=== PATIENT | female | born 1950 | race Caucasian/White ===

== ENCOUNTER 2017-03-02 00:23 | Observation (INO) ==
[2017-03-02] MEDS ORDERED: ALBUTEROL/IPRATROPIUM 3 ML NEB RESP TX STA (03:25)
--- NOTE | 2017-03-02 03:37 | EKG Report ---
Stationary ECG Study [facility] ER Test Date: 03/02/2017 3:36:02 AM Pat Name: PETER YE Department: Room: Gender: F Individualized Education Plan Aide: : 1950 Requested by: Chaitanya Rizzo Order Number: [id number] Reading MD: BREN SANFORD Intervals [place] Rate: 85 P: 85 CA: 124 QRS: 92 QRSD: 98 T: 76 QT: 374 QTc: 417 Interpretive Statements SINUS RHYTHM Electronically Signed On 03-04-17 17:27:00 CDT by BREN SANFORD [email or web address]
[2017-03-02 03:42] LABS: Basophils # 0.1 10*3/uL (0.0-0.2); Basophils % 0.8 % (0.0-0.8); Eosinophils # 0.1 10*3/uL (0.0-0.87); Eosinophils % 0.7 % (0.00-10.9); Hematocrit 42.6 VOL% (35.7-47.0); Hemoglobin 14.4 GM/DL (12.0-16.0); Immature Granulocytes % 0.3 %; Immature Granulocytes Absolute 0.03 #; Lymphocytes # 1.7 10*3/uL (1.4-4.0); Lymphocytes % 19.5 % (21.3-54.2); Mean Corpuscular HGB Conc 33.8 GM/DL (32-36); Mean Corpuscular Hemoglobin 30 PG (27-34); Mean Corpuscular Volume 90.1 FL (87-102); Mean Platelet Volume 9.7 FL (9.6-12.0); Monocytes # 0.6 10*3/uL (0.11-0.8); Neutrophils # 6.4 10*3/uL (1.4-7.4); Neutrophils % 71.7 % (38.7-73.9); Platelet Count 297 T/CUMM (130-400); Red Blood Count 4.73 MC/CUMM (3.8-5.5); Red Cell Distribution Width 13.2 % (9.3-17.3); White Blood Count 8.9 T/CUMM (4-12)
[2017-03-02 04:02] LABS: Albumin 3.4 G/DL (3.4-5.0); Bilirubin,Total 0.6 MG/DL (0.2-1.0); Calcium 9.3 MG/DL (8.5-10.1); Potassium 4.5 MMOL/L (3.5-5.1); Total Protein 6.7 G/DL (6.4-8.3)
[2017-03-02 04:14] LABS: VBG HCO3 32.3 MEQ/L (24-28); VBG Oxygen Saturation 81.4 %; VBG PCO2 58.3 MMHG (41-51); VBG PH 7.362
[2017-03-02] MEDS ORDERED: ACETAMINOPHEN 325 MG TABLET PO PRN (04:49)
[2017-03-02] MEDS ORDERED: ONDANSETRON 4 MG/2 ML VIAL IV PRN (04:49)
[2017-03-02] MEDS ORDERED: guaiFENesin/DM ER 600-30 MG TABLET PO PRN (04:49)
[2017-03-02] MEDS ORDERED: ALBUTEROL/IPRATROPIUM 3 ML NEB RESP TX PRN (05:25)
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
[2017-03-02] MEDS ORDERED: POTASSIUM GLUCONATE 500 MG TABLET PO SCH (09:00)
[2017-03-02] MEDS ORDERED: CETIRIZINE 5 MG TABLET PO SCH (09:00)
[2017-03-02] MEDS ORDERED: MONTELUKAST 10 MG TABLET PO SCH (09:00)
[2017-03-02] MEDS ORDERED: PANTOPRAZOLE 40 MG TABLET PO SCH (09:00)
[2017-03-02] MEDS ORDERED: ENOXAPARIN 40 MG/0.4 ML SYRINGE SUBCUT SCH (09:00)
[2017-03-02] MEDS ORDERED: CALCIUM CARBONATE PO SCH (09:00)
[2017-03-02] MEDS ORDERED: CHOLECALCIFEROL 1,000 UNIT TABLET PO SCH (09:00)
[2017-03-02] MEDS ORDERED: amLODIPine 10 MG TABLET PO SCH (09:00)
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
[2017-03-02 12:03] VITALS: BP 112/72
== END 2017-03-02 13:37 | disposition home or self-care (01) ==
LOC: N.EDINP 00:23 → N.ED 00:23 → SUATTDRO 04:53 → N.EDINP 05:33 → N.5E 06:09
PROVIDERS: ADMIT Family Medicine; ATTEND Family Medicine

== ENCOUNTER 2019-04-20 18:48 | Inpatient (IN) ==
[2019-04-20] MEDS ORDERED: fentaNYL 100 MCG/2 ML VIAL IV STA ×2 (19:06→21:23)
[2019-04-20] MEDS ORDERED: ONDANSETRON 4 MG/2 ML VIAL IV STA (19:06)
[2019-04-20] MEDS ORDERED: ALBUTEROL/IPRATROPIUM 3 ML NEB RESP TX STA (19:06)
[2019-04-20 19:37] LABS: Basophils # 0.1 10*3/uL (0.0-0.2); Basophils % 0.3 % (0.0-0.8); Hematocrit 33.5 VOL% (35.7-47.0); Hemoglobin 11.1 GM/DL (12.0-16.0); Immature Granulocytes % 0.7 %; Immature Granulocytes Absolute 0.14 #; Lymphocytes # 1.1 10*3/uL (1.4-4.0); Lymphocytes % 5.1 % (21.3-54.2); Mean Corpuscular HGB Conc 33.1 GM/DL (32-36); Mean Corpuscular Volume 89.6 FL (87-102); Mean Platelet Volume 8.8 FL (9.6-12.0); Monocytes % 4.8 % (1.7-12.7); Neutrophils % 89.1 % (38.7-73.9); Platelet Count 453 T/CUMM (130-400); Red Blood Count 3.74 MC/CUMM (3.8-5.5); Red Cell Distribution Width 13.2 % (9.3-17.3)
[2019-04-20 19:47] LABS: PT Patient Result 10.4 SECS (9.6-12.2)
[2019-04-20 19:50] LABS: Alanine Aminotransferase 30 U/L (13-56); Alkaline Phosphatase 85 U/L (45-117); Aspartate Amino Transferase 28 U/L (0-37); Bilirubin,Total < 0.39 MG/DL (0.2-1.0); Blood Urea Nitrogen 5 MG/DL (7-18); Calcium 8.1 MG/DL (8.5-10.1); Estimated Glom Filtration Rate 91 ML/MIN; Glucose 91 MG/DL (74-106); Osmolality,Calculated 247.5 MOS/KG (273-304); Total Protein 6.1 G/DL (6.4-8.3); Troponin I < 0.015 NG/ML (0.00-0.045)
[2019-04-20 20:03] LABS: Band Neutrophils 1 % (0-10); Lymphocytes 8 % (20-55); Segmented Neutrophils 89 % (50-85); Total Cells Counted 100
[2019-04-20 20:04] LABS: Platelet Estimate Adequate
[2019-04-20 20:15] LABS: Apearance,Urine CLEAR (Clear); Bilirubin,Urine Negative (Negative); Blood, Urine Small mg/dL (Negative); Glucose,Urine (UA) Negative (Negative); Ketones,Urine Negative (Negative); Nitrite,Urine Negative (Negative); Protein,Urine Negative; RBC,Urine 1 /HPF (0-4); Squamous Epithelial Cell,Urine Occasional /HPF (0-10); Urine Color Straw (Yellow); Urine Specific Gravity 1.002 (1.001-1.035); Urine Urobilinogen < 2.0 EU/DL (0.2-1.0); WBC,Urine 1 /HPF (0-6)
[2019-04-20] MEDS ORDERED: cefTRIAXone 1,000 MG in SODIUM CHLORIDE 0.9% 100 ML IV STA (20:15)
[2019-04-20] MEDS ORDERED: ALBUTEROL NEB SOLN 5 MG/ML 20 ML/BOTTLE CONT NEB STA (20:16)
[2019-04-20] MEDS ORDERED: AZITHROMYCIN INJ 500 MG in SODIUM CHLORIDE 0.9% 250 ML IV STA (20:16)
[2019-04-20] MEDS ORDERED: ORPHENADRINE 60 MG/2 ML VIAL IV STA (22:18)
[2019-04-20] MEDS ORDERED: ACETAMINOPHEN 325 MG TABLET PO PRN (23:21)
[2019-04-20] MEDS ORDERED: PROMETHAZINE 25 MG/1 ML VIAL IM PRN (23:21)
[2019-04-20] MEDS ORDERED: NICOTINE 21 MG/24 HR PATCH TRANSDERM PRN (23:21)
[2019-04-20] MEDS ORDERED: ALBUTEROL 2.5 MG/3 ML NEB RESP TX PRN (23:49)
[2019-04-21] MEDS ORDERED: LEVOFLOXACIN INJ 750 MG in PREMIX 1 EACH IV SCH
[2019-04-21] MEDS ORDERED: MAGNESIUM SULF RIDER 2 GM in PREMIX 1 EACH IV PRN (00:30)
[2019-04-21] MEDS ORDERED: MAGNESIUM SULF RIDER 4 GM in PREMIX 1 EACH IV PRN (00:30)
[2019-04-21] MEDS: SODIUM CHLORIDE 0.9% 1,000 ML IV SCH ×4 (00:42→23:45)
[2019-04-21] MEDS: HYDROmorphone 2 MG/1 ML VIAL IV PRN ×4 (00:50→19:25)
[2019-04-21] MEDS: ALBUTEROL/IPRATROPIUM 3 ML NEB RESP TX SCH ×4 (02:16→19:14)
[2019-04-21] MEDS: PIPERACILLIN/TAZOBACTAM 3,375 MG in SODIUM CHLORIDE 0.9% 100 ML IV SCH ×3 (02:49→18:00)
[2019-04-21 05:38] LABS: Basophils % 0.3 % (0.0-0.8); Eosinophils % 0.1 % (0.00-10.9); Hemoglobin 10.5 GM/DL (12.0-16.0); Immature Granulocytes % 0.5 %; Immature Granulocytes Absolute 0.07 #; Lymphocytes # 1.1 10*3/uL (1.4-4.0); Lymphocytes % 7.8 % (21.3-54.2); Mean Corpuscular HGB Conc 32.8 GM/DL (32-36); Mean Corpuscular Volume 89.4 FL (87-102); Mean Platelet Volume 8.9 FL (9.6-12.0); Monocytes % 9.6 % (1.7-12.7); Neutrophils % 81.7 % (38.7-73.9); Platelet Count 419 T/CUMM (130-400); Red Blood Count 3.58 MC/CUMM (3.8-5.5); Red Cell Distribution Width 13.2 % (9.3-17.3); White Blood Count 13.8 T/CUMM (4-12)
[2019-04-21 06:02] LABS: Calcium 8.3 MG/DL (8.5-10.1); Osmolality,Calculated 250.2 MOS/KG (273-304); Thyroid Stimulating Hormone 6.52 uIU/ml (0.358-3.74)
[2019-04-21] MEDS ORDERED: IPRATROPIUM 500 MCG/2.5 ML NEB RESP TX SCH (07:00)
[2019-04-21] MEDS: LOSARTAN 50 MG TABLET PO SCH (08:03)
[2019-04-21] MEDS ORDERED: POTASSIUM GLUCONATE 99 MG PO SCH (09:00)
[2019-04-21] MEDS ORDERED: ROSUVASTATIN 20 MG TABLET PO SCH (09:00)
[2019-04-21] MEDS ORDERED: Fluticasone-Umeclidin-Vilanter [Trelegy Ellipta] INH SCH (09:00)
[2019-04-21] MEDS ORDERED: predniSONE 20 MG TABLET PO SCH (09:00)
[2019-04-21] MEDS ORDERED: CETIRIZINE 10 MG TABLET PO SCH (09:00)
[2019-04-21] MEDS ORDERED: ORPHENADRINE 60 MG/2 ML VIAL IV PRN (10:00)
[2019-04-21] MEDS ORDERED: guaiFENesin/DM ER 600-30 MG TABLET PO PRN (10:48)
[2019-04-21] MEDS: MONTELUKAST 10 MG TABLET PO SCH (14:10)
[2019-04-21] MEDS: CETIRIZINE 10 MG TABLET PO SCH (14:10)
[2019-04-21] MEDS: PANTOPRAZOLE 40 MG TABLET PO SCH (14:10)
[2019-04-21] MEDS: CHOLECALCIFEROL 1,000 UNIT TABLET PO SCH (14:10)
[2019-04-21] MEDS: CALCIUM (CARBONATE) 500 MG TABLET PO SCH (14:10)
[2019-04-21] MEDS ORDERED: traZODone 50 MG TABLET PO PRN (14:57)
[2019-04-22] MEDS: ALBUTEROL/IPRATROPIUM 3 ML NEB RESP TX SCH ×4 (00:37→19:21)
[2019-04-22] MEDS: PIPERACILLIN/TAZOBACTAM 3,375 MG in SODIUM CHLORIDE 0.9% 100 ML IV SCH ×2 (02:55→09:21)
[2019-04-22 05:14] LABS: Basophils % 0.3 % (0.0-0.8); Eosinophils # 0.1 10*3/uL (0.0-0.87); Eosinophils % 0.4 % (0.00-10.9); Hematocrit 32.6 VOL% (35.7-47.0); Hemoglobin 10.7 GM/DL (12.0-16.0); Immature Granulocytes % 0.5 %; Immature Granulocytes Absolute 0.07 #; Lymphocytes # 0.8 10*3/uL (1.4-4.0); Lymphocytes % 5.5 % (21.3-54.2); Mean Corpuscular HGB Conc 32.8 GM/DL (32-36); Mean Corpuscular Volume 88.8 FL (87-102); Mean Platelet Volume 8.9 FL (9.6-12.0); Monocytes % 8.1 % (1.7-12.7); Neutrophils % 85.2 % (38.7-73.9); Platelet Count 415 T/CUMM (130-400); Red Blood Count 3.67 MC/CUMM (3.8-5.5); Red Cell Distribution Width 13.3 % (9.3-17.3); White Blood Count 13.5 T/CUMM (4-12)
[2019-04-22 05:43] LABS: Calcium 8.3 MG/DL (8.5-10.1); Osmolality,Calculated 248.4 MOS/KG (273-304)
[2019-04-22] MEDS: CETIRIZINE 10 MG TABLET PO SCH (08:17)
[2019-04-22] MEDS: MONTELUKAST 10 MG TABLET PO SCH (08:18)
[2019-04-22] MEDS: CALCIUM (CARBONATE) 500 MG TABLET PO SCH (08:18)
[2019-04-22] MEDS: DOCUSATE SODIUM 100 MG CAPSULE PO PRN (08:19)
[2019-04-22] MEDS: CHOLECALCIFEROL 1,000 UNIT TABLET PO SCH (08:19)
[2019-04-22] MEDS: SODIUM CHLORIDE 1 GM TABLET PO SCH ×2 (08:19→20:50)
[2019-04-22] MEDS: PANTOPRAZOLE 40 MG TABLET PO SCH (08:20)
[2019-04-22] MEDS: LOSARTAN 50 MG TABLET PO SCH (08:20)
[2019-04-22] MEDS: AZITHROMYCIN INJ 500 MG in SODIUM CHLORIDE 0.9% 250 ML IV SCH (13:28)
[2019-04-22] MEDS: SODIUM CHLORIDE 0.9% 1,000 ML IV SCH ×2 (17:32→17:33)
[2019-04-23] MEDS: ALBUTEROL/IPRATROPIUM 3 ML NEB RESP TX SCH ×4 (01:00→20:06)
[2019-04-23] MEDS: SODIUM CHLORIDE 0.9% 1,000 ML IV SCH ×4 (06:10→15:30)
[2019-04-23] MEDS: LOSARTAN 50 MG TABLET PO SCH (08:31)
[2019-04-23] MEDS: SODIUM CHLORIDE 1 GM TABLET PO SCH ×5 (08:31→20:58)
[2019-04-23] MEDS: PANTOPRAZOLE 40 MG TABLET PO SCH (10:02)
[2019-04-23] MEDS: CHOLECALCIFEROL 1,000 UNIT TABLET PO SCH (10:02)
[2019-04-23] MEDS: MONTELUKAST 10 MG TABLET PO SCH (10:02)
[2019-04-23] MEDS: CALCIUM (CARBONATE) 500 MG TABLET PO SCH (10:02)
[2019-04-23] MEDS: CETIRIZINE 10 MG TABLET PO SCH (10:02)
[2019-04-23] MEDS: AZITHROMYCIN INJ 500 MG in SODIUM CHLORIDE 0.9% 250 ML IV SCH (11:10)
[2019-04-24] MEDS: ALBUTEROL/IPRATROPIUM 3 ML NEB RESP TX SCH ×4 (00:52→20:47)
[2019-04-24] MEDS: SODIUM CHLORIDE 0.9% 1,000 ML IV SCH ×4 (02:50→14:20)
[2019-04-24] MEDS ORDERED: ALBUTEROL/IPRATROPIUM 3 ML NEB RESP TX ONE (06:00)
[2019-04-24] MEDS ORDERED: DIAZEPAM 5 MG TABLET PO ONE (06:00)
[2019-04-24] MEDS ORDERED: FAMOTIDINE 20 MG TABLET PO ONE (06:00)
[2019-04-24] MEDS ORDERED: PROPOFOL 200 MG/20 ML VIAL IV ONE (06:36)
[2019-04-24] MEDS ORDERED: BUPIVACAINE SPINAL 0.75% 2 ML AMP SPINAL ONE (06:37)
[2019-04-24] MEDS ORDERED: MIDAZOLAM 2 MG/2 ML VIAL ONE (06:37)
[2019-04-24] MEDS ORDERED: EPINEPHrine 1 MG/ML VIAL ONE (06:37)
[2019-04-24] MEDS ORDERED: DEXAMETHASONE 4 MG/1 ML VIAL ONE (06:37)
[2019-04-24] MEDS ORDERED: fentaNYL 100 MCG/2 ML VIAL ONE (06:37)
[2019-04-24] MEDS ORDERED: BUPIVACAINE 0.5% 50 ML VIAL ONE (06:37)
[2019-04-24] MEDS ORDERED: PHENYLEPHRINE 1 MG/10 ML SYRINGE IV ONE (06:37)
[2019-04-24 06:40] LABS: Basophils # 0.1 10*3/uL (0.0-0.2); Basophils % 0.6 % (0.0-0.8); Eosinophils # 0.3 10*3/uL (0.0-0.87); Eosinophils % 2.6 % (0.00-10.9); Hematocrit 33.7 VOL% (35.7-47.0); Hemoglobin 10.8 GM/DL (12.0-16.0); Immature Granulocytes % 0.5 %; Immature Granulocytes Absolute 0.06 #; Lymphocytes # 1.2 10*3/uL (1.4-4.0); Lymphocytes % 10.8 % (21.3-54.2); Mean Corpuscular Volume 90.8 FL (87-102); Mean Platelet Volume 9.5 FL (9.6-12.0); Monocytes % 9.5 % (1.7-12.7); Platelet Count 474 T/CUMM (130-400); Red Blood Count 3.71 MC/CUMM (3.8-5.5); Red Cell Distribution Width 13.5 % (9.3-17.3); White Blood Count 11.3 T/CUMM (4-12)
[2019-04-24 07:20] LABS: Calcium 8.3 MG/DL (8.5-10.1); Osmolality,Calculated 261.4 MOS/KG (273-304)
[2019-04-24] MEDS: CETIRIZINE 10 MG TABLET PO SCH (08:45)
[2019-04-24] MEDS: CHOLECALCIFEROL 1,000 UNIT TABLET PO SCH (08:45)
[2019-04-24] MEDS: DOCUSATE SODIUM 100 MG CAPSULE PO PRN (08:45)
[2019-04-24] MEDS: MONTELUKAST 10 MG TABLET PO SCH (08:45)
[2019-04-24] MEDS: CALCIUM (CARBONATE) 500 MG TABLET PO SCH (08:45)
[2019-04-24] MEDS: PANTOPRAZOLE 40 MG TABLET PO SCH (08:46)
[2019-04-24] MEDS: LOSARTAN 50 MG TABLET PO SCH (08:46)
[2019-04-24] MEDS: SODIUM CHLORIDE 1 GM TABLET PO SCH ×2 (08:46→14:17)
[2019-04-24] MEDS: methylPREDNISolone SOD SUC 40 MG/1 ML VIAL IV SCH ×2 (10:30→17:15)
[2019-04-24] MEDS: PIPERACILLIN/TAZOBACTAM 3,375 MG in SODIUM CHLORIDE 0.9% 100 ML IV SCH ×2 (10:32→17:14)
[2019-04-24] MEDS: ONDANSETRON 4 MG/2 ML VIAL IV PRN (11:28)
[2019-04-24] MEDS: AZITHROMYCIN INJ 500 MG in SODIUM CHLORIDE 0.9% 250 ML IV SCH (14:17)
[2019-04-25] MEDS: ALBUTEROL/IPRATROPIUM 3 ML NEB RESP TX SCH ×4 (00:31→20:52)
[2019-04-25] MEDS: PIPERACILLIN/TAZOBACTAM 3,375 MG in SODIUM CHLORIDE 0.9% 100 ML IV SCH ×3 (00:58→16:43)
[2019-04-25] MEDS: methylPREDNISolone SOD SUC 40 MG/1 ML VIAL IV SCH ×3 (01:41→16:44)
[2019-04-25 03:54] LABS: Basophils % 0.2 % (0.0-0.8); Hematocrit 37.2 VOL% (35.7-47.0); Hemoglobin 11.4 GM/DL (12.0-16.0); Immature Granulocytes % 0.8 %; Immature Granulocytes Absolute 0.05 #; Lymphocytes # 0.6 10*3/uL (1.4-4.0); Lymphocytes % 8.8 % (21.3-54.2); Mean Corpuscular HGB Conc 30.6 GM/DL (32-36); Mean Corpuscular Volume 93.9 FL (87-102); Mean Platelet Volume 9.1 FL (9.6-12.0); Monocytes % 3.4 % (1.7-12.7); Neutrophils % 86.8 % (38.7-73.9); Platelet Count 525 T/CUMM (130-400); Red Blood Count 3.96 MC/CUMM (3.8-5.5); Red Cell Distribution Width 13.6 % (9.3-17.3); White Blood Count 6.6 T/CUMM (4-12)
[2019-04-25 04:16] LABS: Calcium 9.4 MG/DL (8.5-10.1); Osmolality,Calculated 269.1 MOS/KG (273-304)
[2019-04-25] MEDS ORDERED: SODIUM POLYSTYRENE SULFATE 15 GM/60 ML BOTTLE PO ONE (07:03)
[2019-04-25] MEDS: MONTELUKAST 10 MG TABLET PO SCH (08:42)
[2019-04-25] MEDS: CHOLECALCIFEROL 1,000 UNIT TABLET PO SCH (08:43)
[2019-04-25] MEDS: LOSARTAN 50 MG TABLET PO SCH (08:43)
[2019-04-25] MEDS: CETIRIZINE 10 MG TABLET PO SCH (08:43)
[2019-04-25] MEDS: CALCIUM (CARBONATE) 500 MG TABLET PO SCH (08:43)
[2019-04-25] MEDS: PANTOPRAZOLE 40 MG TABLET PO SCH (08:44)
[2019-04-25] MEDS ORDERED: ALUMINUM/MAGNES/SIMETH MAX STR 30 ML UDCUP PO PRN (14:30)
[2019-04-25] MEDS: AZITHROMYCIN INJ 500 MG in SODIUM CHLORIDE 0.9% 250 ML IV SCH (14:42)
[2019-04-25] MEDS: SODIUM CHLORIDE 0.9% 1,000 ML IV SCH (18:41)
[2019-04-26] MEDS: PIPERACILLIN/TAZOBACTAM 3,375 MG in SODIUM CHLORIDE 0.9% 100 ML IV SCH ×2 (01:16→09:39)
[2019-04-26] MEDS: methylPREDNISolone SOD SUC 40 MG/1 ML VIAL IV SCH ×3 (01:16→17:24)
[2019-04-26] MEDS: ALBUTEROL/IPRATROPIUM 3 ML NEB RESP TX SCH ×4 (01:30→19:08)
[2019-04-26 07:04] LABS: Calcium 8.8 MG/DL (8.5-10.1); Osmolality,Calculated 273.7 MOS/KG (273-304)
[2019-04-26] MEDS: LOSARTAN 50 MG TABLET PO SCH (09:44)
[2019-04-26] MEDS: PANTOPRAZOLE 40 MG TABLET PO SCH (10:11)
[2019-04-26] MEDS: CALCIUM (CARBONATE) 500 MG TABLET PO SCH (10:11)
[2019-04-26] MEDS: CETIRIZINE 10 MG TABLET PO SCH (10:12)
[2019-04-26] MEDS: CHOLECALCIFEROL 1,000 UNIT TABLET PO SCH (10:12)
[2019-04-26] MEDS: MONTELUKAST 10 MG TABLET PO SCH (10:12)
[2019-04-26] MEDS: CEFDINIR 300 MG CAPSULE PO SCH (20:54)
[2019-04-27] MEDS: ALBUTEROL/IPRATROPIUM 3 ML NEB RESP TX SCH ×4 (00:05→19:30)
[2019-04-27] MEDS: methylPREDNISolone SOD SUC 40 MG/1 ML VIAL IV SCH ×3 (01:20→17:33)
[2019-04-27 04:58] LABS: Basophils % 0.1 % (0.0-0.8); Hematocrit 34.2 VOL% (35.7-47.0); Hemoglobin 10.8 GM/DL (12.0-16.0); Immature Granulocytes % 0.8 %; Immature Granulocytes Absolute 0.08 #; Lymphocytes # 0.7 10*3/uL (1.4-4.0); Lymphocytes % 7.4 % (21.3-54.2); Mean Corpuscular HGB Conc 31.6 GM/DL (32-36); Mean Corpuscular Volume 91.9 FL (87-102); Monocytes % 4.1 % (1.7-12.7); Neutrophils % 87.6 % (38.7-73.9); Platelet Count 564 T/CUMM (130-400); Red Blood Count 3.72 MC/CUMM (3.8-5.5); Red Cell Distribution Width 13.6 % (9.3-17.3); White Blood Count 9.8 T/CUMM (4-12)
[2019-04-27] MEDS: CETIRIZINE 10 MG TABLET PO SCH (09:45)
[2019-04-27] MEDS: PANTOPRAZOLE 40 MG TABLET PO SCH (09:45)
[2019-04-27] MEDS: LOSARTAN 50 MG TABLET PO SCH (09:45)
[2019-04-27] MEDS: CEFDINIR 300 MG CAPSULE PO SCH ×2 (09:45→20:51)
[2019-04-27] MEDS: CHOLECALCIFEROL 1,000 UNIT TABLET PO SCH (09:45)
[2019-04-27] MEDS: MONTELUKAST 10 MG TABLET PO SCH (09:45)
[2019-04-27] MEDS: CALCIUM (CARBONATE) 500 MG TABLET PO SCH (09:45)
[2019-04-28] MEDS: ALBUTEROL/IPRATROPIUM 3 ML NEB RESP TX SCH ×4 (01:27→20:20)
[2019-04-28] MEDS: methylPREDNISolone SOD SUC 40 MG/1 ML VIAL IV SCH ×3 (02:26→17:39)
[2019-04-28] MEDS: LOSARTAN 50 MG TABLET PO SCH (08:58)
[2019-04-28] MEDS: PANTOPRAZOLE 40 MG TABLET PO SCH (08:59)
[2019-04-28] MEDS: MONTELUKAST 10 MG TABLET PO SCH (08:59)
[2019-04-28] MEDS: CEFDINIR 300 MG CAPSULE PO SCH ×2 (08:59→21:22)
[2019-04-28] MEDS: CETIRIZINE 10 MG TABLET PO SCH (08:59)
[2019-04-28] MEDS: CALCIUM (CARBONATE) 500 MG TABLET PO SCH (08:59)
[2019-04-28] MEDS: CHOLECALCIFEROL 1,000 UNIT TABLET PO SCH (08:59)
[2019-04-28] MEDS: DOCUSATE SODIUM 100 MG CAPSULE PO PRN (13:02)
[2019-04-29] MEDS: ALBUTEROL/IPRATROPIUM 3 ML NEB RESP TX SCH ×4 (00:07→19:08)
[2019-04-29] MEDS: methylPREDNISolone SOD SUC 40 MG/1 ML VIAL IV SCH ×2 (01:22→09:07)
[2019-04-29 06:47] LABS: Basophils % 0.1 % (0.0-0.8); Hematocrit 36.5 VOL% (35.7-47.0); Hemoglobin 11.4 GM/DL (12.0-16.0); Immature Granulocytes % 1.4 %; Immature Granulocytes Absolute 0.19 #; Lymphocytes # 1.2 10*3/uL (1.4-4.0); Lymphocytes % 8.7 % (21.3-54.2); Mean Corpuscular HGB Conc 31.2 GM/DL (32-36); Mean Corpuscular Volume 92.6 FL (87-102); Monocytes % 4.2 % (1.7-12.7); Neutrophils % 85.6 % (38.7-73.9); Platelet Count 623 T/CUMM (130-400); Red Blood Count 3.94 MC/CUMM (3.8-5.5); Red Cell Distribution Width 13.9 % (9.3-17.3); White Blood Count 13.4 T/CUMM (4-12)
[2019-04-29 07:05] LABS: Calcium 8.9 MG/DL (8.5-10.1); Osmolality,Calculated 267.4 MOS/KG (273-304)
[2019-04-29] MEDS: LOSARTAN 50 MG TABLET PO SCH (09:11)
[2019-04-29] MEDS: MONTELUKAST 10 MG TABLET PO SCH (09:13)
[2019-04-29] MEDS: PANTOPRAZOLE 40 MG TABLET PO SCH (09:13)
[2019-04-29] MEDS: CHOLECALCIFEROL 1,000 UNIT TABLET PO SCH (09:13)
[2019-04-29] MEDS: CALCIUM (CARBONATE) 500 MG TABLET PO SCH (09:13)
[2019-04-29] MEDS: CETIRIZINE 10 MG TABLET PO SCH (09:14)
[2019-04-29] MEDS: SODIUM CHLORIDE 0.9% 500 ML IV SCH ×3 (09:25→14:24)
[2019-04-29] MEDS ORDERED: FAMOTIDINE 20 MG TABLET PO ONE (12:00)
[2019-04-29] MEDS ORDERED: PHENYLEPHRINE 1 MG/10 ML SYRINGE IV ONE ×2 (16:19→21:21)
[2019-04-29] MEDS ORDERED: MIDAZOLAM 2 MG/2 ML VIAL ONE (16:19)
[2019-04-29] MEDS ORDERED: KETAMINE 500 MG/10 ML VIAL ONE (16:19)
[2019-04-29] MEDS ORDERED: BUPIVACAINE SPINAL 0.75% 2 ML AMP SPINAL ONE (16:19)
[2019-04-29] MEDS: ONDANSETRON 4 MG/2 ML VIAL IV PRN (20:24)
[2019-04-29] MEDS: HYDROmorphone 2 MG/1 ML VIAL IV PRN (20:24)
[2019-04-29] MEDS ORDERED: PROPOFOL 200 MG/20 ML VIAL IV ONE (21:20)
[2019-04-30] MEDS: ALBUTEROL/IPRATROPIUM 3 ML NEB RESP TX SCH ×4 (00:23→19:15)
[2019-04-30 06:12] LABS: Basophils % 0.1 % (0.0-0.8); Eosinophils % 0.2 % (0.00-10.9); Immature Granulocytes % 0.7 %; Immature Granulocytes Absolute 0.12 #; Lymphocytes # 2.1 10*3/uL (1.4-4.0); Lymphocytes % 12.3 % (21.3-54.2); Mean Corpuscular HGB Conc 30.6 GM/DL (32-36); Mean Platelet Volume 9.2 FL (9.6-12.0); Monocytes % 11.8 % (1.7-12.7); Neutrophils % 74.9 % (38.7-73.9); Platelet Count 606 T/CUMM (130-400); Red Blood Count 3.83 MC/CUMM (3.8-5.5); Red Cell Distribution Width 14.2 % (9.3-17.3); White Blood Count 16.8 T/CUMM (4-12)
[2019-04-30 06:29] LABS: Calcium 8.7 MG/DL (8.5-10.1); Osmolality,Calculated 264.4 MOS/KG (273-304)
[2019-04-30] MEDS: LACTATED RINGERS 1,000 ML IV SCH (07:10)
[2019-04-30] MEDS ORDERED: PROPOFOL 200 MG/20 ML VIAL IV ONE (10:00)
[2019-04-30] MEDS ORDERED: LIDOCAINE 100 MG/5 ML SYRINGE ONE (10:00)
[2019-04-30] MEDS: CETIRIZINE 10 MG TABLET PO SCH (10:29)
[2019-04-30] MEDS: MONTELUKAST 10 MG TABLET PO SCH (10:29)
[2019-04-30] MEDS: DOCUSATE SODIUM 100 MG CAPSULE PO PRN (10:29)
[2019-04-30] MEDS: LOSARTAN 50 MG TABLET PO SCH (10:30)
[2019-04-30] MEDS: CHOLECALCIFEROL 1,000 UNIT TABLET PO SCH (10:30)
[2019-04-30] MEDS: predniSONE 20 MG TABLET PO SCH (10:30)
[2019-04-30] MEDS: CALCIUM (CARBONATE) 500 MG TABLET PO SCH (10:30)
[2019-04-30] MEDS: PANTOPRAZOLE 40 MG TABLET PO SCH (10:30)
[2019-05-01] MEDS: ALBUTEROL/IPRATROPIUM 3 ML NEB RESP TX SCH ×4 (01:06→20:07)
[2019-05-01 05:58] LABS: Basophils % 0.2 % (0.0-0.8); Eosinophils # 0.1 10*3/uL (0.0-0.87); Eosinophils % 0.9 % (0.00-10.9); Hematocrit 33.1 VOL% (35.7-47.0); Hemoglobin 10.4 GM/DL (12.0-16.0); Immature Granulocytes % 0.9 %; Immature Granulocytes Absolute 0.14 #; Lymphocytes # 2.7 10*3/uL (1.4-4.0); Mean Corpuscular HGB Conc 31.4 GM/DL (32-36); Mean Corpuscular Volume 92.5 FL (87-102); Mean Platelet Volume 8.8 FL (9.6-12.0); Monocytes % 12.8 % (1.7-12.7); Neutrophils % 68.2 % (38.7-73.9); Platelet Count 491 T/CUMM (130-400); Red Blood Count 3.58 MC/CUMM (3.8-5.5); Red Cell Distribution Width 14.1 % (9.3-17.3)
[2019-05-01] MEDS: LACTATED RINGERS 1,000 ML IV SCH (07:24)
[2019-05-01] MEDS: CALCIUM (CARBONATE) 500 MG TABLET PO SCH (10:03)
[2019-05-01] MEDS: CETIRIZINE 10 MG TABLET PO SCH (10:04)
[2019-05-01] MEDS: MONTELUKAST 10 MG TABLET PO SCH (10:04)
[2019-05-01] MEDS: CHOLECALCIFEROL 1,000 UNIT TABLET PO SCH (10:04)
[2019-05-01] MEDS: PANTOPRAZOLE 40 MG TABLET PO SCH (10:04)
[2019-05-01] MEDS: predniSONE 20 MG TABLET PO SCH (10:04)
[2019-05-01] MEDS: DOCUSATE SODIUM 100 MG CAPSULE PO PRN (10:07)
[2019-05-01] MEDS: LOSARTAN 50 MG TABLET PO SCH (10:38)
[2019-05-01] MEDS: POLYETHYLENE GLYCOL POWDER 17 GM PACK PO SCH (12:14)
[2019-05-01] MEDS: APIXABAN 2.5 MG TABLET PO SCH (21:51)
[2019-05-02] MEDS: ALBUTEROL/IPRATROPIUM 3 ML NEB RESP TX SCH ×4 (01:03→19:43)
[2019-05-02] MEDS: LACTATED RINGERS 1,000 ML IV SCH (07:37)
[2019-05-02] MEDS: MONTELUKAST 10 MG TABLET PO SCH (09:53)
[2019-05-02] MEDS: CETIRIZINE 10 MG TABLET PO SCH (09:53)
[2019-05-02] MEDS: POLYETHYLENE GLYCOL POWDER 17 GM PACK PO SCH (09:53)
[2019-05-02] MEDS: APIXABAN 2.5 MG TABLET PO SCH ×2 (09:53→20:54)
[2019-05-02] MEDS: predniSONE 20 MG TABLET PO SCH (09:54)
[2019-05-02] MEDS: CALCIUM (CARBONATE) 500 MG TABLET PO SCH (09:54)
[2019-05-02] MEDS: CHOLECALCIFEROL 1,000 UNIT TABLET PO SCH (09:54)
[2019-05-02] MEDS: PANTOPRAZOLE 40 MG TABLET PO SCH (09:54)
[2019-05-02] MEDS: LOSARTAN 50 MG TABLET PO SCH (09:54)
[2019-05-03] MEDS: ALBUTEROL/IPRATROPIUM 3 ML NEB RESP TX SCH ×4 (00:41→20:44)
[2019-05-03] MEDS: LACTATED RINGERS 1,000 ML IV SCH (06:41)
[2019-05-03] MEDS: MONTELUKAST 10 MG TABLET PO SCH (09:47)
[2019-05-03] MEDS: CETIRIZINE 10 MG TABLET PO SCH (09:47)
[2019-05-03] MEDS: APIXABAN 2.5 MG TABLET PO SCH ×2 (09:47→20:39)
[2019-05-03] MEDS: POLYETHYLENE GLYCOL POWDER 17 GM PACK PO SCH (09:47)
[2019-05-03] MEDS: predniSONE 20 MG TABLET PO SCH (09:48)
[2019-05-03] MEDS: CALCIUM (CARBONATE) 500 MG TABLET PO SCH (09:48)
[2019-05-03] MEDS: CHOLECALCIFEROL 1,000 UNIT TABLET PO SCH (09:48)
[2019-05-03] MEDS: PANTOPRAZOLE 40 MG TABLET PO SCH (09:48)
[2019-05-03] MEDS: LOSARTAN 50 MG TABLET PO SCH (09:48)
[2019-05-03 09:54] LABS: Basophils # 0.1 10*3/uL (0.0-0.2); Basophils % 0.2 % (0.0-0.8); Eosinophils # 0.1 10*3/uL (0.0-0.87); Eosinophils % 0.4 % (0.00-10.9); Hematocrit 35.3 VOL% (35.7-47.0); Hemoglobin 11.3 GM/DL (12.0-16.0); Immature Granulocytes % 0.8 %; Immature Granulocytes Absolute 0.26 #; Lymphocytes # 1.9 10*3/uL (1.4-4.0); Lymphocytes % 6.3 % (21.3-54.2); Mean Corpuscular Volume 91.9 FL (87-102); Mean Platelet Volume 9.5 FL (9.6-12.0); Monocytes % 7.2 % (1.7-12.7); Neutrophils % 85.1 % (38.7-73.9); Platelet Count 534 T/CUMM (130-400); Red Blood Count 3.84 MC/CUMM (3.8-5.5); Red Cell Distribution Width 14.8 % (9.3-17.3); White Blood Count 30.6 T/CUMM (4-12)
[2019-05-03 10:19] LABS: Band Neutrophils 1 % (0-10); Hypochromasia 1+; Lymphocytes 9 % (20-55); Microcytosis Slight; Segmented Neutrophils 85 % (50-85); Total Cells Counted 100
[2019-05-03] MEDS ORDERED: predniSONE 20 MG TABLET PO SCH (11:39)
[2019-05-04] MEDS: ALBUTEROL/IPRATROPIUM 3 ML NEB RESP TX SCH ×4 (02:29→21:05)
[2019-05-04 06:13] LABS: Basophils % 0.1 % (0.0-0.8); Eosinophils # 0.1 10*3/uL (0.0-0.87); Eosinophils % 0.5 % (0.00-10.9); Hematocrit 32.8 VOL% (35.7-47.0); Hemoglobin 10.4 GM/DL (12.0-16.0); Immature Granulocytes % 0.9 %; Immature Granulocytes Absolute 0.23 #; Lymphocytes # 2.5 10*3/uL (1.4-4.0); Lymphocytes % 9.9 % (21.3-54.2); Mean Corpuscular HGB Conc 31.7 GM/DL (32-36); Mean Corpuscular Volume 94.3 FL (87-102); Mean Platelet Volume 9.4 FL (9.6-12.0); Monocytes % 8.4 % (1.7-12.7); Neutrophils % 80.2 % (38.7-73.9); Platelet Count 473 T/CUMM (130-400); Red Blood Count 3.48 MC/CUMM (3.8-5.5); White Blood Count 24.9 T/CUMM (4-12)
[2019-05-04 06:33] LABS: Calcium 8.9 MG/DL (8.5-10.1); Osmolality,Calculated 266.4 MOS/KG (273-304)
[2019-05-04 06:55] LABS: Band Neutrophils 10 % (0-10); Eosinophils 2 % (0-10); Lymphocytes 12 % (20-55); Platelet Estimate Normal; Segmented Neutrophils 66 % (50-85); Total Cells Counted 100
[2019-05-04 06:56] LABS: Anisocytosis 1+
[2019-05-04] MEDS: POLYETHYLENE GLYCOL POWDER 17 GM PACK PO SCH (10:03)
[2019-05-04] MEDS: CALCIUM (CARBONATE) 500 MG TABLET PO SCH (10:04)
[2019-05-04] MEDS: LOSARTAN 50 MG TABLET PO SCH (10:04)
[2019-05-04] MEDS: predniSONE 20 MG TABLET PO SCH (10:04)
[2019-05-04] MEDS: CHOLECALCIFEROL 1,000 UNIT TABLET PO SCH (10:05)
[2019-05-04] MEDS: CETIRIZINE 10 MG TABLET PO SCH (10:05)
[2019-05-04] MEDS: MONTELUKAST 10 MG TABLET PO SCH (10:05)
[2019-05-04] MEDS: PANTOPRAZOLE 40 MG TABLET PO SCH (10:05)
[2019-05-04] MEDS: APIXABAN 2.5 MG TABLET PO SCH ×2 (10:05→21:22)
[2019-05-05] MEDS: ALBUTEROL/IPRATROPIUM 3 ML NEB RESP TX SCH ×4 (00:44→20:08)
[2019-05-05 06:22] LABS: Basophils % 0.2 % (0.0-0.8); Eosinophils # 0.2 10*3/uL (0.0-0.87); Eosinophils % 1.1 % (0.00-10.9); Hematocrit 30.6 VOL% (35.7-47.0); Hemoglobin 9.5 GM/DL (12.0-16.0); Immature Granulocytes % 0.8 %; Immature Granulocytes Absolute 0.16 #; Lymphocytes # 2.9 10*3/uL (1.4-4.0); Mean Corpuscular Volume 94.4 FL (87-102); Mean Platelet Volume 9.8 FL (9.6-12.0); Monocytes % 8.2 % (1.7-12.7); Neutrophils % 74.7 % (38.7-73.9); Platelet Count 456 T/CUMM (130-400); Red Blood Count 3.24 MC/CUMM (3.8-5.5); Red Cell Distribution Width 15.2 % (9.3-17.3)
[2019-05-05] MEDS: CALCIUM (CARBONATE) 500 MG TABLET PO SCH (08:46)
[2019-05-05] MEDS: POLYETHYLENE GLYCOL POWDER 17 GM PACK PO SCH (08:46)
[2019-05-05] MEDS: CHOLECALCIFEROL 1,000 UNIT TABLET PO SCH (08:46)
[2019-05-05] MEDS: PANTOPRAZOLE 40 MG TABLET PO SCH (08:46)
[2019-05-05] MEDS: predniSONE 20 MG TABLET PO SCH (08:46)
[2019-05-05] MEDS: CETIRIZINE 10 MG TABLET PO SCH (08:46)
[2019-05-05] MEDS: APIXABAN 2.5 MG TABLET PO SCH ×2 (08:46→20:41)
[2019-05-05] MEDS: LOSARTAN 50 MG TABLET PO SCH (08:46)
[2019-05-05] MEDS: MONTELUKAST 10 MG TABLET PO SCH (08:46)
[2019-05-05] MEDS: LACTATED RINGERS 1,000 ML IV SCH (15:32)
[2019-05-06] MEDS: ALBUTEROL/IPRATROPIUM 3 ML NEB RESP TX SCH ×2 (00:57→07:15)
[2019-05-06 06:17] LABS: Basophils # 0.1 10*3/uL (0.0-0.2); Basophils % 0.4 % (0.0-0.8); Eosinophils # 0.3 10*3/uL (0.0-0.87); Eosinophils % 1.9 % (0.00-10.9); Hematocrit 31.6 VOL% (35.7-47.0); Immature Granulocytes % 1.2 %; Immature Granulocytes Absolute 0.18 #; Lymphocytes # 3.3 10*3/uL (1.4-4.0); Lymphocytes % 21.2 % (21.3-54.2); Mean Corpuscular HGB Conc 31.6 GM/DL (32-36); Mean Corpuscular Volume 92.7 FL (87-102); Mean Platelet Volume 9.6 FL (9.6-12.0); Monocytes % 10.8 % (1.7-12.7); Neutrophils % 64.5 % (38.7-73.9); Platelet Count 495 T/CUMM (130-400); Red Blood Count 3.41 MC/CUMM (3.8-5.5); Red Cell Distribution Width 15.1 % (9.3-17.3); White Blood Count 15.6 T/CUMM (4-12)
[2019-05-06 08:38] VITALS: BP 151/76
[2019-05-06] MEDS: CALCIUM (CARBONATE) 500 MG TABLET PO SCH (09:22)
[2019-05-06] MEDS: LOSARTAN 50 MG TABLET PO SCH (09:22)
[2019-05-06] MEDS: MONTELUKAST 10 MG TABLET PO SCH (09:23)
[2019-05-06] MEDS: predniSONE 20 MG TABLET PO SCH (09:23)
[2019-05-06] MEDS: PANTOPRAZOLE 40 MG TABLET PO SCH (09:23)
[2019-05-06] MEDS: APIXABAN 2.5 MG TABLET PO SCH (09:23)
[2019-05-06] MEDS: CETIRIZINE 10 MG TABLET PO SCH (09:24)
[2019-05-06] MEDS: CHOLECALCIFEROL 1,000 UNIT TABLET PO SCH (09:24)
[2019-05-06] MEDS: POLYETHYLENE GLYCOL POWDER 17 GM PACK PO SCH (09:26)
== END 2019-05-06 11:42 | disposition swing bed (61) | DRG 480 ==
LOC: EDUNIT# → EDBD → N.ED 18:48 → SUATTDRO 23:33 → N.EDINP 23:33 → N.3E 23:42
PROVIDERS: ADMIT Internal Medicine; ATTEND Internal Medicine Geriatric Medicine